=== PATIENT | male | born 1945 | race African-American/Black ===

== ENCOUNTER 2021-03-06 15:24 | Inpatient (IN) | payer OTHER ==
[~2021-03-06] VITALS: Ht 172.7 cm; Wt 55.5 kg
[2021-03-06] MEDS ORDERED: ACETAMINOPHEN 325MG TABLET PO STA (17:03)
[2021-03-06] MEDS ORDERED: CEFTRIAXONE 1 G PREMIX 50 ML IV ONE (17:15)
[2021-03-06 17:54] LABS: HEMATOCRIT. 25.4 % (42.0-52.0); HEMOGLOBIN. 8.6 g/dL (14.0-18.0); MEAN CORPUSCULAR HEMOGLOBIN 27.3 pg (28.0-32.0); MEAN CORPUSCULAR VOLUME 80.6 fL (80.0-94.0); PLATELET 202 x1000/uL (130-400); RED BLOOD CELL COUNT 3.16 mill/uL (4.7-6.1); RED CELL DISTRIBUTION WIDTH 16.8 % (11.6-14.6)
[2021-03-06 18:13] LABS: PLATELET ESTIMATE NORMAL
[2021-03-06] MEDS ORDERED: SODIUM CHLORIDE 0.9% 500 ML IV ONE (18:45)
[2021-03-06] MEDS ORDERED: MANNITOL 12.5G (25%) VIAL 50ML IV ONE (18:45)
[2021-03-06 19:31] LABS: CHLORIDE 97 mEq/L (98-107)
[2021-03-06] MEDS ORDERED: ALBUTEROL 6.7GM HFA INHALER ORI PRN (21:30)
[2021-03-06] MEDS ORDERED: GUAIFENESIN 200MG/10ML SUGAR FREE UDC PO PRN (21:30)
[2021-03-06] MEDS ORDERED: IPRATROPIUM/ALBUTEROL 0.5-3(2.5)MG/3ML NEB NEB PRN (21:30)
[2021-03-06] MEDS ORDERED: MAGNESIUM/ALUMINUM HYDROXIDE/SIMETHICONE 30ML UDC PO PRN (21:30)
[2021-03-06] MEDS ORDERED: ZOLPIDEM TARTRATE 5MG TABLET PO PRN (21:30)
[2021-03-06] MEDS ORDERED: DOCUSATE SODIUM 100MG CAPSULE PO PRN (21:30)
[2021-03-06] MEDS ORDERED: NITROGLYCERIN 0.4MG TABLET SL SL PRN (21:30)
[2021-03-06] MEDS ORDERED: CLONIDINE 0.1MG TABLET PO PRN (21:30)
[2021-03-06] MEDS ORDERED: KETOROLAC 15MG/ML VIAL IV PRN (21:48)
[2021-03-06] MEDS ORDERED: AZITHROMYCIN 500 MG in DEXT 5% WATER 250 ML IV SCH (22:00)
[2021-03-06] MEDS ORDERED: AZITHROMYCIN 500MG/250ML 250 ML IV NR (22:00)
[2021-03-06 22:21] LABS: ETHANOL BLOOD < 10 mg/dL
[2021-03-06 22:23] LABS: TOTAL IRON BINDING CAPACITY 110 ug/dL (250-450)
[2021-03-06 22:25] LABS: CREATINE KINASE 29 IU/L (39-308)
[2021-03-06 22:26] LABS: CREATINE KINASE MB FRACTION < 1.0 ng/mL (0.5-3.6)
[2021-03-06] MEDS: ENOXAPARIN 40MG/0.4ML SYR SUBCUT SCH (22:31)
[2021-03-06 22:46] LABS: VITAMIN B12 SERUM 445 pg/mL (211-911)
[2021-03-06 22:50] LABS: FOLIC ACID (FOLATE) SERUM > 20.00 ng/mL (>5.38)
[2021-03-07 05:57] LABS: HEMATOCRIT. 25.4 % (42.0-52.0); HEMOGLOBIN. 8.8 g/dL (14.0-18.0); MEAN CORPUSCULAR HEMOGLOBIN 27.7 pg (28.0-32.0); MEAN CORPUSCULAR VOLUME 80.2 fL (80.0-94.0); MEAN PLATELET VOLUME 7.8 fl (7.4-10.4); PLATELET 198 x1000/uL (130-400); RED BLOOD CELL COUNT 3.17 mill/uL (4.7-6.1); RED CELL DISTRIBUTION WIDTH 16.4 % (11.6-14.6)
[2021-03-07 06:02] LABS: CHLORIDE 96 mEq/L (98-107)
[2021-03-07 06:08] LABS: PHOSPHORUS 3.3 mg/dL (2.5-4.9)
[2021-03-07 06:10] LABS: CREATINE KINASE 23 IU/L (39-308)
[2021-03-07 06:13] LABS: CREATINE KINASE MB FRACTION < 1.0 ng/mL (0.5-3.6)
[2021-03-07] MEDS: ASCORBIC ACID 500 MG TABLET PO SCH ×2 (09:41→21:18)
[2021-03-07] MEDS: FAMOTIDINE 20MG TABLET PO SCH ×2 (09:42→21:11)
[2021-03-07] MEDS: CHOLECALCIFEROL (D3) 1000 UNIT TABLET PO SCH (09:42)
[2021-03-07] MEDS: ZINC SULFATE 220 MG ( 50 ) CAPSULE PO SCH (09:42)
[2021-03-07] MEDS: ALBUTEROL 6.7GM HFA INHALER ORI SCH (09:54)
[2021-03-07 13:43] LABS: *BARBITURATES SCREEN URINE NEGATIVE (NEGATIVE); *BENZODIAZEPINES SCREEN URINE NEGATIVE (NEGATIVE); *COCAINE SCREEN URINE NEGATIVE (NEGATIVE)
[2021-03-07 13:45] LABS: *AMPHETAMINES SCREEN URINE NEGATIVE (NEGATIVE); CANNABINOID URINE SCREEN NEGATIVE (NEGATIVE); METHADONE URINE SCREEN NEGATIVE (NEGATIVE); OPIATES URINE SCREEN NEGATIVE (NEGATIVE); PHENCYCLIDINE URINE SCREEN NEGATIVE (NEGATIVE)
[2021-03-07 14:01] LABS: CLARITY URINE CLEAR (CLEAR); COLOR URINE YELLOW (YELLOW); KETONES URINE NEGATIVE (NEGATIVE); LEUKOCYTE ESTERASE URINE TRACE (NEGATIVE); NITRITE URINE NEGATIVE (NEGATIVE); OCCULT BLOOD URINE NEGATIVE (NEGATIVE); PH URINE 6.5 (4.5-8.0); PROTEIN URINE 1+ (NEGATIVE)
[2021-03-07 16:57] LABS: PLATELET ESTIMATE NORMAL
[2021-03-07] MEDS ORDERED: CEFTRIAXONE 1,000 MG in DEXTROSE 5% WATER 50 ML IV SCH (17:00)
[2021-03-07] MEDS: AZITHROMYCIN 500 MG in DEXT 5% WATER 250 ML IV SCH (21:18)
[2021-03-07] MEDS: ENOXAPARIN 40MG/0.4ML SYR SUBCUT SCH (21:22)
[2021-03-07 22:30] VITALS: BP 110/89
[2021-03-08] VITALS: BP 162/60
[2021-03-08 04:00] VITALS: BP 118/50
[2021-03-08 08:00] VITALS: BP 131/61
[2021-03-08] MEDS: ASCORBIC ACID 500 MG TABLET PO SCH ×2 (09:17→22:06)
[2021-03-08] MEDS: ZINC SULFATE 220 MG ( 50 ) CAPSULE PO SCH (09:17)
[2021-03-08] MEDS: CHOLECALCIFEROL (D3) 1000 UNIT TABLET PO SCH (09:18)
[2021-03-08] MEDS: FAMOTIDINE 20MG TABLET PO SCH ×2 (09:18→22:06)
[2021-03-08] MEDS: ACETAMINOPHEN 325MG TABLET PO PRN ×2 (09:18→18:30)
[2021-03-08 12:00] VITALS: BP 115/62
[2021-03-08 15:51] VITALS: BP 142/72
[2021-03-08] MEDS: CEFTRIAXONE 1,000 MG in DEXTROSE 5% WATER 50 ML IV SCH (17:11)
[2021-03-08] MEDS: AZITHROMYCIN 500 MG in DEXT 5% WATER 250 ML IV SCH (17:11)
[2021-03-08 20:00] VITALS: BP 119/59
[2021-03-08] MEDS: ENOXAPARIN 40MG/0.4ML SYR SUBCUT SCH (22:07)
[2021-03-09] VITALS: BP 133/63
[2021-03-09 04:00] VITALS: BP 126/62
[2021-03-09 08:00] VITALS: BP 129/63
[2021-03-09] MEDS: FAMOTIDINE 20MG TABLET PO SCH ×2 (08:44→21:26)
[2021-03-09] MEDS: ZINC SULFATE 220 MG ( 50 ) CAPSULE PO SCH (08:44)
[2021-03-09] MEDS: ACETAMINOPHEN 325MG TABLET PO PRN ×2 (08:44→21:28)
[2021-03-09] MEDS: CHOLECALCIFEROL (D3) 1000 UNIT TABLET PO SCH (08:44)
[2021-03-09] MEDS: ASCORBIC ACID 500 MG TABLET PO SCH ×2 (08:44→21:26)
[2021-03-09 12:00] VITALS: BP 130/61
[2021-03-09] MEDS ORDERED: DIATR MEGLU/DIATRIZOATE SOLN 30ML PO SCH (14:30)
[2021-03-09 16:00] VITALS: BP 133/66
[2021-03-09] MEDS: CEFTRIAXONE 1,000 MG in DEXTROSE 5% WATER 50 ML IV SCH (17:51)
[2021-03-09 20:00] VITALS: BP 110/52
[2021-03-09] MEDS: ENOXAPARIN 40MG/0.4ML SYR SUBCUT SCH (21:27)
[2021-03-10] VITALS: BP 129/61
[2021-03-10 04:00] VITALS: BP 121/53
[2021-03-10] MEDS: DOXYCYCLINE HYCLATE 100MG CAPSULE PO SCH ×3 (06:04→23:10)
[2021-03-10 08:00] VITALS: BP 139/65
[2021-03-10] MEDS: CHOLECALCIFEROL (D3) 1000 UNIT TABLET PO SCH (09:06)
[2021-03-10] MEDS: FAMOTIDINE 20MG TABLET PO SCH ×2 (09:07→23:10)
[2021-03-10] MEDS: ZINC SULFATE 220 MG ( 50 ) CAPSULE PO SCH (09:07)
[2021-03-10] MEDS: ASCORBIC ACID 500 MG TABLET PO SCH ×2 (09:07→23:11)
[2021-03-10] MEDS: ACETAMINOPHEN 325MG TABLET PO PRN (09:07)
[2021-03-10 11:44] VITALS: BP 106/56
[2021-03-10] MEDS: CEFTRIAXONE 1,000 MG in DEXTROSE 5% WATER 50 ML IV SCH (17:57)
[2021-03-10 20:00] VITALS: BP 121/52
[2021-03-10] MEDS: ENOXAPARIN 40MG/0.4ML SYR SUBCUT SCH (23:10)
[2021-03-11] VITALS: BP 115/56
[2021-03-11 07:40] VITALS: BP 118/50
[2021-03-11 07:55] LABS: CHLORIDE 98 mEq/L (98-107)
[2021-03-11 07:58] LABS: HEMATOCRIT. 21.8 % (42.0-52.0); HEMOGLOBIN. 7.5 g/dL (14.0-18.0); MEAN CORPUSCULAR VOLUME 78.9 fL (80.0-94.0); MEAN PLATELET VOLUME 8.2 fl (7.4-10.4); PLATELET 237 x1000/uL (130-400); RED BLOOD CELL COUNT 2.77 mill/uL (4.7-6.1); RED CELL DISTRIBUTION WIDTH 16.7 % (11.6-14.6)
[2021-03-11 08:00] VITALS: BP 129/59
[2021-03-11] MEDS: ZINC SULFATE 220 MG ( 50 ) CAPSULE PO SCH (09:00)
[2021-03-11] MEDS: DOXYCYCLINE HYCLATE 100MG CAPSULE PO SCH ×2 (09:00→20:22)
[2021-03-11] MEDS: ASCORBIC ACID 500 MG TABLET PO SCH ×2 (09:00→20:21)
[2021-03-11] MEDS: CHOLECALCIFEROL (D3) 1000 UNIT TABLET PO SCH (09:00)
[2021-03-11] MEDS: FAMOTIDINE 20MG TABLET PO SCH ×2 (09:00→20:22)
[2021-03-11 12:00] VITALS: BP 125/61
[2021-03-11 13:21] LABS: PLATELET ESTIMATE NORMAL
[2021-03-11] MEDS: ACETAMINOPHEN 325MG TABLET PO PRN (14:14)
[2021-03-11 16:00] VITALS: BP 102/53
[2021-03-11] MEDS: CEFTRIAXONE 1,000 MG in DEXTROSE 5% WATER 50 ML IV SCH (17:00)
[2021-03-11 20:00] VITALS: BP 124/56
[2021-03-11] MEDS: ENOXAPARIN 40MG/0.4ML SYR SUBCUT SCH (20:22)
[2021-03-12] VITALS: BP 132/62
[2021-03-12 04:00] VITALS: BP 128/78
[2021-03-12 08:00] VITALS: BP 119/56
[2021-03-12] MEDS: ZINC SULFATE 220 MG ( 50 ) CAPSULE PO SCH (11:25)
[2021-03-12] MEDS: DOXYCYCLINE HYCLATE 100MG CAPSULE PO SCH ×2 (11:25→21:11)
[2021-03-12] MEDS: ASCORBIC ACID 500 MG TABLET PO SCH ×2 (11:25→21:11)
[2021-03-12] MEDS: CHOLECALCIFEROL (D3) 1000 UNIT TABLET PO SCH (11:26)
[2021-03-12] MEDS: FAMOTIDINE 20MG TABLET PO SCH ×2 (11:26→21:01)
[2021-03-12 12:00] VITALS: BP 123/59
[2021-03-12 15:49] VITALS: BP 121/70
[2021-03-12] MEDS: ACETAMINOPHEN 325MG TABLET PO PRN (21:02)
[2021-03-12] MEDS: ENOXAPARIN 40MG/0.4ML SYR SUBCUT SCH (21:04)
[2021-03-12] MEDS: ONDANSETRON HCL 4MG/2ML INJ IV PRN (21:12)
[2021-03-13] MEDS: ACETAMINOPHEN 325MG TABLET PO PRN ×3 (00:44→22:19)
[2021-03-13] MEDS: ONDANSETRON HCL 4MG/2ML INJ IV PRN ×3 (00:44→22:18)
[2021-03-13] MEDS: CHOLECALCIFEROL (D3) 1000 UNIT TABLET PO SCH (10:45)
[2021-03-13] MEDS: ASCORBIC ACID 500 MG TABLET PO SCH ×2 (10:45→19:50)
[2021-03-13] MEDS: DOXYCYCLINE HYCLATE 100MG CAPSULE PO SCH ×2 (10:45→19:50)
[2021-03-13] MEDS: FAMOTIDINE 20MG TABLET PO SCH ×2 (10:46→19:50)
[2021-03-13] MEDS: ZINC SULFATE 220 MG ( 50 ) CAPSULE PO SCH (10:46)
[2021-03-13 13:56] LABS: HEMATOCRIT 23.2 % (42.0-52.0); HEMOGLOBIN 7.8 g/dL (14.0-18.0); MEAN CORPUSCULAR HEMOGLOBIN 26.6 pg (28.0-32.0); MEAN CORPUSCULAR VOLUME 79.3 fL (80.0-94.0); PLATELET 260 x1000/uL (130-400); RED BLOOD CELL COUNT 2.93 mill/uL (4.7-6.1); RED CELL DISTRIBUTION WIDTH 16.9 % (11.6-14.6)
[2021-03-13 17:09] LABS: CHLORIDE 98 mEq/L (98-107)
[2021-03-13] MEDS: ENOXAPARIN 40MG/0.4ML SYR SUBCUT SCH (19:51)
[2021-03-13 20:00] VITALS: BP 122/72
[2021-03-14] VITALS: BP 123/77
[2021-03-14 04:00] VITALS: BP 132/88
[2021-03-14] MEDS: ACETAMINOPHEN 325MG TABLET PO PRN ×2 (04:38→17:45)
[2021-03-14 08:00] VITALS: BP 104/48
[2021-03-14] MEDS: ASCORBIC ACID 500 MG TABLET PO SCH ×2 (09:38→20:32)
[2021-03-14] MEDS: FAMOTIDINE 20MG TABLET PO SCH ×2 (09:38→20:32)
[2021-03-14] MEDS: CHOLECALCIFEROL (D3) 1000 UNIT TABLET PO SCH (09:38)
[2021-03-14] MEDS: ZINC SULFATE 220 MG ( 50 ) CAPSULE PO SCH (09:38)
[2021-03-14] MEDS: DOXYCYCLINE HYCLATE 100MG CAPSULE PO SCH ×2 (09:38→20:32)
[2021-03-14 12:00] VITALS: BP 117/54
[2021-03-14 16:30] VITALS: BP 119/78
[2021-03-14 20:00] VITALS: BP 106/51
[2021-03-14] MEDS: ENOXAPARIN 40MG/0.4ML SYR SUBCUT SCH (20:32)
[2021-03-14] MEDS ORDERED: IOHEXOL-300 100 ML BOTTLE ONE (21:31)
[2021-03-15] VITALS: BP 98/54
[2021-03-15 04:00] VITALS: BP 98/42
[2021-03-15] MEDS: ACETAMINOPHEN 325MG TABLET PO PRN ×2 (04:58→18:37)
[2021-03-15 08:00] VITALS: BP 115/51
[2021-03-15] MEDS: DOXYCYCLINE HYCLATE 100MG CAPSULE PO SCH ×2 (08:02→21:03)
[2021-03-15] MEDS: FAMOTIDINE 20MG TABLET PO SCH ×2 (08:02→21:04)
[2021-03-15] MEDS: ZINC SULFATE 220 MG ( 50 ) CAPSULE PO SCH (08:02)
[2021-03-15] MEDS: CHOLECALCIFEROL (D3) 1000 UNIT TABLET PO SCH (08:02)
[2021-03-15] MEDS: ASCORBIC ACID 500 MG TABLET PO SCH ×2 (08:02→21:04)
[2021-03-15 12:00] VITALS: BP 122/60
[2021-03-15 16:00] VITALS: BP 120/54
[2021-03-15 20:00] VITALS: BP 104/46
[2021-03-15] MEDS: ENOXAPARIN 40MG/0.4ML SYR SUBCUT SCH (21:09)
[2021-03-16] VITALS: BP 96/41
[2021-03-16 04:00] VITALS: BP 106/52
[2021-03-16 04:07] LABS: HIV SCREEN 4G Non Reactive (Non Reactive)
[2021-03-16 08:00] VITALS: BP 108/49
[2021-03-16] MEDS: ZINC SULFATE 220 MG ( 50 ) CAPSULE PO SCH (09:11)
[2021-03-16] MEDS: FAMOTIDINE 20MG TABLET PO SCH ×2 (09:11→21:20)
[2021-03-16] MEDS: DOXYCYCLINE HYCLATE 100MG CAPSULE PO SCH ×2 (09:11→21:20)
[2021-03-16] MEDS: ASCORBIC ACID 500 MG TABLET PO SCH ×2 (09:11→21:20)
[2021-03-16] MEDS: ACETAMINOPHEN 325MG TABLET PO PRN (09:11)
[2021-03-16] MEDS: CHOLECALCIFEROL (D3) 1000 UNIT TABLET PO SCH (09:11)
[2021-03-16 12:00] VITALS: BP 110/51
[2021-03-16 16:00] VITALS: BP 114/49
[2021-03-16] MEDS: ENOXAPARIN 40MG/0.4ML SYR SUBCUT SCH (21:21)
[2021-03-17] VITALS: BP 106/45
[2021-03-17 04:00] VITALS: BP 101/45
[2021-03-17 08:00] VITALS: BP 112/49
[2021-03-17] MEDS: CHOLECALCIFEROL (D3) 1000 UNIT TABLET PO SCH (10:30)
[2021-03-17] MEDS: ASCORBIC ACID 500 MG TABLET PO SCH ×2 (10:31→23:28)
[2021-03-17] MEDS: FAMOTIDINE 20MG TABLET PO SCH ×2 (10:31→23:28)
[2021-03-17] MEDS: ZINC SULFATE 220 MG ( 50 ) CAPSULE PO SCH (10:31)
[2021-03-17 12:00] VITALS: BP 104/52
[2021-03-17 16:00] VITALS: BP 108/40
[2021-03-17 18:16] LABS: HEMATOCRIT. 21.3 % (42.0-52.0); HEMOGLOBIN. 7.1 g/dL (14.0-18.0); MEAN CORPUSCULAR HEMOGLOBIN 26.1 pg (28.0-32.0); MEAN PLATELET VOLUME 7.3 fl (7.4-10.4); PLATELET 214 x1000/uL (130-400); RED BLOOD CELL COUNT 2.73 mill/uL (4.7-6.1); RED CELL DISTRIBUTION WIDTH 17.1 % (11.6-14.6)
[2021-03-17 19:24] LABS: CHLORIDE 104 mEq/L (98-107)
[2021-03-17 19:40] LABS: PLATELET ESTIMATE NORMAL
[2021-03-17] MEDS: ENOXAPARIN 40MG/0.4ML SYR SUBCUT SCH (23:27)
[2021-03-18 08:00] VITALS: BP 116/49
[2021-03-18] MEDS: ZINC SULFATE 220 MG ( 50 ) CAPSULE PO SCH (08:28)
[2021-03-18] MEDS: FAMOTIDINE 20MG TABLET PO SCH (08:29)
[2021-03-18] MEDS: ASCORBIC ACID 500 MG TABLET PO SCH (08:29)
[2021-03-18] MEDS: CHOLECALCIFEROL (D3) 1000 UNIT TABLET PO SCH (08:29)
[2021-03-18] MEDS ORDERED: MULTIVITAMINS,THER W-MINERALS TABLET PO SCH (09:00)
[2021-03-18] MEDS: ALBUTEROL 6.7GM HFA INHALER ORI SCH ×2 (09:00→15:00)
[2021-03-18 12:00] VITALS: BP 104/41
[2021-03-18 16:06] VITALS: BP 120/49
[2021-03-18 16:37] VITALS: BP 120/49
[2021-03-21 04:07] LABS: HISTOPLASMA ABS QT DID None Detected (.)
== END 2021-03-18 21:22 | disposition short-term general hospital (02) | DRG 871 ==
LOC: ER 15:24 → EDBEDREQTM 21:28 → EDBEDREQ 21:28 → MICUSO 23:12 → 5WST 03-07 20:58
PROVIDERS: ADMIT Internal Medicine; ATTEND Internal Medicine
DX: A41.9 Sepsis, unspecified organism (principal); J18.9 Pneumonia, unspecified organism; E43 Unspecified severe protein-calorie malnutrition; E87.1 Hypo-osmolality and hyponatremia; Z68.1 Body mass index [BMI] 19.9 or less, adult; C77.2 Secondary and unspecified malignant neoplasm of intra-abdominal lymph nodes; E83.51 Hypocalcemia; I10 Essential (primary) hypertension; C61 Malignant neoplasm of prostate; Z20.822 Contact with and (suspected) exposure to COVID-19; G30.9 Alzheimer's disease, unspecified; F02.80 Dementia in other diseases classified elsewhere, unspecified severity, without behavioral disturbance, psychotic disturbance, mood disturbance, and anxiety; R74.01 Elevation of levels of liver transaminase levels; D63.8 Anemia in other chronic diseases classified elsewhere
CPT/HCPCS: 36415; 70544; 70553; 71045; 71260; 74176; 80048; 80053; 80076; 80305; 80320; 81003; 82550; 82553; 82607; 82746; 83036; 83540; 83550; 83605; 83735; 84100; 84145; 84443; 84484; 84550; 85025; 85027; 85651; 86038; 86140; 86430; 86635; 86698; 87389; 87426; 87804; 87899; 93005; 93306; 93880; 93970; 94640; 97116; 97162; 97166; 97530; 99291; J0456; J0696; J1650; J2150; J2405; J7040; J7060; Q9967; G0480